=== PATIENT | female | born 1990 | race Caucasian/White ===

== ENCOUNTER 2022-03-07 12:54 | Emergency (ER) | payer OTHER ==
[~2022-03-07] VITALS: Ht 170.2 cm; Wt 61.3 kg
[2022-03-07] MEDS ORDERED: [UNRECOGNIZED DRUG - OTHER] (13:04)
[2022-03-07] MEDS ORDERED: AMOX875T2 PO (18:00)
[2022-03-07] MEDS ORDERED: FLUC150T9 PO (18:00)
[2022-03-07] MEDS ORDERED: PRED20TA PO (18:00)
[2022-03-07 18:08] VITALS: BP 134/92
== END 2022-03-07 18:15 | disposition home or self-care (01) ==
LOC: M ED 12:54
DX: K04.7 Periapical abscess without sinus (principal); L03.211 Cellulitis of face

== ENCOUNTER → 2022-05-08 | Outpatient (REF) | payer OTHER ==
[~2022-05-08] MED LIST: AMOX875T2 PO; FLUC150T9 PO; PRED20TA PO; [UNRECOGNIZED DRUG - OTHER]
[2022-05-08 18:46] LABS: ALBUMIN 4.5 G/DL (3.2-5.2); ALKALINE PHOSPHATASE 63 U/L (46-116); ALT/SGPT 27 U/L (7.0-40); AST/SGOT 24 U/L (<34); BILIRUBIN,TOTAL 0.6 MG/DL (0.3-1.2); BLOOD UREA NITROGEN 11 MG/DL (9-23); CALCIUM LEVEL 9.1 MG/DL (8.5-10.1); CARBON DIOXIDE LEVEL 29 MMOL/L (20-31); CHLORIDE LEVEL 105 MMOL/L (98-107); CHOLESTEROL LEVEL 143 MG/DL (<200); CHOLESTEROL RISK RATIO 2.07 (<5); CREATININE FOR GFR 0.75 MG/DL (0.55-1.30); GLOMERULAR FILTRATION RATE > 60.0 (>60); GLUCOSE, FASTING 84 MG/DL (60-100); HDL CHOLESTEROL 68.8 MG/DL (>40); LDL CHOLESTEROL 62.8 MG/DL (<100); NON-HDL-C 74 MG/DL; POTASSIUM SERUM 4.5 MMOL/L (3.5-5.1); SODIUM LEVEL 139 MMOL/L (136-145); TOTAL PROTEIN 7.4 G/DL (5.7-8.2); TRIGLYCERIDES LEVEL 57 MG/DL (<150)
[2022-05-08 18:53] LABS: TOTAL 25(OH) VITAMIN D 25.9 NG/ML (20.0-100.0)
[2022-05-08 18:54] LABS: FREE T4 1.03 NG/DL (0.89-1.76)
[2022-05-08 18:55] LABS: THYROID STIMULATING HORMONE 1.188 uIU/ML (0.55-4.78)
[2022-05-08 18:56] LABS: HEMOGLOBIN A1c 4.4 % (4.0-6.0)
[2022-05-08 18:57] LABS: BASO % 0.8 % (0.0-1.0); EOS # 0.2 10^3/uL (0.0-0.5); EOS % 5.6 % (0.0-3.0); HEMATOCRIT 43.5 % (36.0-47.0); HEMOGLOBIN 14.3 g/dl (12.0-15.5); LYMPH # 1.1 10^3/uL (1.5-5.0); LYMPH % 29.7 % (24.0-44.0); MEAN CORPUSCULAR HEMOGLOBIN 32.2 pg (27.0-33.0); MEAN CORPUSCULAR HGB CONC 32.9 g/dl (32.0-36.5); MONO # 0.3 10^3/uL (0.0-0.8); MONO % 8.6 % (2.0-8.0); NEUTROPHILS # 2.1 10^3/uL (1.5-8.5); NEUTROPHILS % 55.3 % (36.0-66.0); PLATELET COUNT, AUTOMATED 185 10^3/uL (150-450); RED BLOOD COUNT 4.44 10^6/uL (4.00-5.40); WHITE BLOOD COUNT 3.7 10^3/uL (4.0-10.0)
[2022-05-08 19:18] LABS: HIV 1&2 SCREEN CENTAUR NEGATIVE (NEGATIVE)
[2022-05-08 19:25] LABS: HEPATITIS C VIRUS ABY INDEX 0.1 INDEX (<0.8)
== END ==
LOC: M LAB REF 16:17
PROVIDERS: ATTEND Nurse Practitioner Family
DX: Z13.228 Encounter for screening for other metabolic disorders (principal); E04.9 Nontoxic goiter, unspecified; Z11.9 Encounter for screening for infectious and parasitic diseases, unspecified

== ENCOUNTER → 2022-05-26 | Outpatient (REF) | payer OTHER ==
[2022-05-29 16:08] LABS: MUMPS VIRUS IgG ANTIBODY 39.4 AU/mL (Immune >10.9)
== END ==
LOC: M LAB REF 16:06
PROVIDERS: ATTEND Nurse Practitioner Family
DX: Z23 Encounter for immunization (principal)

== ENCOUNTER → 2022-07-03 | Outpatient (REF) | payer OTHER ==
[2022-07-03 17:43] LABS: BASO % 0.2 % (0.0-1.0); EOS # 0.2 10^3/uL (0.0-0.5); EOS % 2.5 % (0.0-3.0); HEMATOCRIT 37.3 % (36.0-47.0); HEMOGLOBIN 12.7 g/dl (12.0-15.5); LYMPH # 1.8 10^3/uL (1.5-5.0); LYMPH % 21.2 % (24.0-44.0); MEAN CORPUSCULAR HEMOGLOBIN 32.3 pg (27.0-33.0); MEAN CORPUSCULAR VOLUME 94.9 fl (80.0-96.0); MONO # 0.6 10^3/uL (0.0-0.8); MONO % 7.5 % (2.0-8.0); NEUTROPHILS # 5.8 10^3/uL (1.5-8.5); NEUTROPHILS % 68.2 % (36.0-66.0); PLATELET COUNT, AUTOMATED 175 10^3/uL (150-450); RED BLOOD COUNT 3.93 10^6/uL (4.00-5.40); WHITE BLOOD COUNT 8.5 10^3/uL (4.0-10.0)
== END ==
LOC: M LAB REF 16:40
PROVIDERS: ATTEND Nurse Practitioner Family
DX: R89.9 Unspecified abnormal finding in specimens from other organs, systems and tissues (principal)

== ENCOUNTER → 2022-08-01 | Outpatient (REF) | payer OTHER | LOC: M SFHCWAGY 18:13 | PROVIDERS: ATTEND Nurse Practitioner Family | DX: Z12.4 Encounter for screening for malignant neoplasm of cervix (principal) ==

== ENCOUNTER → 2023-01-08 | Outpatient (REF) | payer OTHER | LOC: M LAB REF 16:38 | PROVIDERS: ATTEND Nurse Practitioner Family | DX: E04.9 Nontoxic goiter, unspecified (principal) ==

== ENCOUNTER → 2023-04-24 | Outpatient (REF) | payer OTHER ==
[2023-04-24 19:36] LABS: CHLAMYDIA DNA AMPLIFICATION NEGATIVE (NEGATIVE); GC DNA AMPLIFICATION NEGATIVE (NEGATIVE)
== END ==
LOC: M SFHCWAGY 16:47
PROVIDERS: ATTEND Nurse Practitioner Family
DX: R10.2 Pelvic and perineal pain (principal)

== ENCOUNTER → 2023-05-10 | Outpatient (CLI) | payer OTHER | LOC: M LAB 09:30 → M RAD 09:30 | PROVIDERS: ATTEND Nurse Practitioner Family | DX: R07.9 Chest pain, unspecified (principal) ==

== ENCOUNTER → 2023-05-14 | Outpatient (CLI) | payer OTHER | LOC: M RAD 12:25 | PROVIDERS: ATTEND Nurse Practitioner Family | DX: R10.2 Pelvic and perineal pain (principal); D25.2 Subserosal leiomyoma of uterus; Z97.5 Presence of (intrauterine) contraceptive device; N83.202 Unspecified ovarian cyst, left side ==

== ENCOUNTER → 2023-05-23 | Outpatient (CLI) | payer OTHER | LOC: M RAD 14:36 | PROVIDERS: ATTEND Nurse Practitioner Family | DX: M54.2 Cervicalgia (principal) ==

== ENCOUNTER → 2023-08-09 | Outpatient (REF) | payer OTHER ==
[2023-08-09 18:37] LABS: C REACTIVE PROTEIN QUANTITATIV < 0.40 MG/DL (<1.0)
[2023-08-09 18:39] LABS: FREE T4 1.29 NG/DL (0.89-1.76)
[2023-08-09 19:13] LABS: THYROGLOBULIN ANTIBODY < 15.0 U/ML (<60.0); THYROID PEROXIDASE ANTIBODY 45 U/ML (<60.0)
== END ==
LOC: M LAB REF 17:15
PROVIDERS: ATTEND Nurse Practitioner Family
DX: E04.9 Nontoxic goiter, unspecified (principal)

== ENCOUNTER → 2023-08-29 | Outpatient (CLI) | payer OTHER ==
[~2023-08-29] MED LIST changes: +DEXT5TAB3 PO; +LIDOCAINE 1% MDV 20ML VIAL As Ordered ONE
[2023-08-29 12:50] VITALS: TEMP 97.9
[2023-08-29 13:30] VITALS: BP 158/96; O2SAT 100
== END ==
LOC: M IRPRO 12:40
PROVIDERS: ATTEND Otolaryngology
DX: E04.1 Nontoxic single thyroid nodule (principal)

== ENCOUNTER → 2024-06-23 | Outpatient (REF) | payer OTHER ==
[~2024-06-23] MED LIST changes: -LIDOCAINE 1% MDV 20ML VIAL As Ordered ONE
[2024-06-23 14:08] LABS: EOS # 0.2 10^3/uL (0.0-0.5); EOS % 6.2 % (0.0-3.0); HEMATOCRIT 39.4 % (36.0-47.0); HEMOGLOBIN 13.4 g/dl (12.0-15.5); LYMPH # 1.4 10^3/uL (1.5-5.0); LYMPH % 35.6 % (24.0-44.0); MEAN CORPUSCULAR HEMOGLOBIN 32.8 pg (27.0-33.0); MEAN CORPUSCULAR VOLUME 96.3 fl (80.0-96.0); MONO # 0.4 10^3/uL (0.0-0.8); MONO % 11.2 % (2.0-8.0); NEUTROPHILS # 1.8 10^3/uL (1.5-8.5); NEUTROPHILS % 45.7 % (36.0-66.0); PLATELET COUNT, AUTOMATED 171 10^3/uL (150-450); RED BLOOD COUNT 4.09 10^6/uL (4.00-5.40); WHITE BLOOD COUNT 3.9 10^3/uL (4.0-10.0)
[2024-06-23 14:09] LABS: BLOOD UREA NITROGEN 10 MG/DL (9-23); CALCIUM LEVEL 8.6 MG/DL (8.5-10.1); CARBON DIOXIDE LEVEL 28 MMOL/L (20-31); CHLORIDE LEVEL 105 MMOL/L (98-107); CREATININE FOR GFR 0.65 MG/DL (0.55-1.30); GLOMERULAR FILTRATION RATE > 60.0 (>60); GLUCOSE, FASTING 93 MG/DL (60-100); IMMUNOGLOBULIN A 197.7 MG/DL (40-350); SODIUM LEVEL 143 MMOL/L (136-145)
[2024-06-23 14:11] LABS: THYROID STIMULATING HORMONE 1.725 uIU/ML (0.55-4.78)
[2024-06-25 03:03] LABS: TISSUE TRANSGLUTAMINASE IgA 2.7 U/mL (<15.0); TISSUE TRANSGLUTAMINASE IgG < 1.0 U/mL (<15.0)
== END ==
LOC: M LAB REF 12:01
PROVIDERS: ATTEND Nurse Practitioner Family
DX: R14.0 Abdominal distension (gaseous) (principal)

== ENCOUNTER → 2024-06-27 | Outpatient (CLI) | payer OTHER | LOC: M WHC 10:40 | PROVIDERS: ATTEND Nurse Practitioner Family | DX: R10.2 Pelvic and perineal pain (principal) ==

== ENCOUNTER → 2024-12-08 | Outpatient (REF) | payer OTHER ==
[2024-12-10 15:12] LABS: HPV APTIMA Not Detected (Not Detected)
== END ==
LOC: M SFHCWAGY 10:13
PROVIDERS: ATTEND Nurse Practitioner Family
DX: Z12.4 Encounter for screening for malignant neoplasm of cervix (principal)
CPT/HCPCS: 87624; G0123